=== PATIENT | male | born 1960 | race Hispanic/Latino ===

== ENCOUNTER → 2024-11-09 | Outpatient (CLI) | payer OTHER ==
--- NOTE | 2024-11-10 00:19 | HMCIMG ---
EXAM: CR Chest, 2 View. CLINICAL HISTORY: HTN COMPARISON: None provided. FINDINGS: Post-sternotomy status. LUNGS: The lungs show no infiltrate or other acute finding. PLEURAL SPACES: No pleural effusion or pneumothorax. MEDIASTINUM: Cardiac size and mediastinal contours are within normal limits. BONES: No aggressively appearing osseous lesion was seen. IMPRESSION: Post-sternotomy status. No acute cardiopulmonary pathology is evident. /[place]
== END | disposition home or self-care (01) ==
LOC: RAH 15:08
PROVIDERS: ATTEND Internal Medicine
DX: I10 Essential (primary) hypertension (principal); Z98.890 Other specified postprocedural states
CPT/HCPCS: 71046